=== PATIENT | male | born 1970 | race Caucasian/White ===

== ENCOUNTER 2024-08-06 20:32 | Inpatient (IN) | payer MEDICAID, OTHER ==
[~2024-08-06] VITALS: Ht 195.6 cm; Wt 115.0 kg
[~2024-08-06 20:32] MED LIST: ASPI81CH43 PO; ATOR20TA50 PO; MET25T PO; TICA90TA PO
--- NOTE | 2024-08-06 20:51 | ED.PDOC ---
HPI Comments 54-year-old male came to ER due to chest pains. Patient does have a history of hypertension, dyslipidemia, coronary artery disease, DE, status post cardiac stents. For the past 2 hours, has been having constant left-sided chest pains pressure, radiating towards his left arm, associated with shortness of breath. Blood pressure been upon arrival was 181/105 mm Hg Chief Complaint: Chest Pain Time Seen by MD: 20:50 Primary Care Provider: MELODY Reviewed Notes: Nurses Notes Allergies: Coded Allergies: NO KNOWN ALLERGIES (Unverified , 07/27/18) Home Meds Active Scripts Metoprolol Tartrate (Lopressor) 25 Mg Tb, 25 MG PO BID, #60 Prov:NIEVES CORDERO MD 07/29/18 Atorvastatin Calcium (ATORVASTATIN CALCIUM) 20 Mg Tab, 40 MG PO HS, #30 TAB Prov:NIEVES CORDERO MD 07/29/18 Ticagrelor Base (BRILINTA) 90 Mg Tab, 90 MG PO BID, #60 TAB Prov:NIEVES CORDERO MD 07/29/18 Aspirin (Asa) 81 Mg Ch, 81 MG PO DAILY, #30 Prov:NIEVES CORDERO MD 07/29/18 Information Source: Patient Mode of Arrival: Ambulatory Severity: Severe Timing: Hours (2) Duration: Since onset Prehospital treatment: Cns Location: Chest (L) Radiation: Arm (L) Quality: Pressure Onset: With Light Exertion Cardiac Risk Factors: Hyperlipidemia, HTN PE Risk Factors: None History of: Similar pain in past, DE Modifying Factors: Nothing Associated Signs and Symptoms: SOB Past Medical History PAST MEDICAL HISTORY: CAD, High Lipids, HTN, DE Surgical History: PTCA, Denies all surgeries Family History Family History: Reviewed,noncontributory to illness Social History Smoker: Non-Smoker Alcohol: Occasionally Drugs: Marijuana Lives In: Home Constitutional: denies: chills, diaphoresis, fatigue, fever, malaise, sweats, weakness, others EENTM: denies: blurred vision, double vision, ear bleeding, ear discharge, ear drainage, ear pain, ear ringing, eye pain, eye redness, hearing loss, mouth pain, mouth swelling, nasal discharge, nose bleeding, nose congestion, nose pain, photophobia, tearing, throat pain, throat swelling, voice changes, others Respiratory: reports: shortness of breath; denies: cough, hemoptysis, orthopnea, SOB at rest, SOB with excertion, stridor, wheezing, others Cardiovascular: reports: chest pain, left arm pain; denies: dizzy spells, diaphoresis, Dyspnea on exertion, edema, irregular heart beat, lightheadedness, palpitations, PND, syncope, others Gastrointestinal: denies: abdomen distended, abdominal pain, blood streaked bowels, constipated, diarrhea, dysphagia, difficulty swallowing, hematemesis, melena, nausea, poor appetite, poor fluid intake, rectal bleeding, rectal pain, vomiting, others Genitourinary: denies: burning, dysuria, flank pain, frequency, hematuria, incontinence, penile discharge, penile sore, pain, testicle pain, testicle swelling, urgency, others Neurological: denies: dizziness, fainting, headache, left sided numbness, left sided weakness, numbness, paresthesia, pre-existing deficit, right sided numbness, right sided weakness, seizure, speech problems, tingling, tremors, weakness, others Musculoskeletal: denies: back pain, gout, joint pain, joint swelling, muscle pain, muscle stiffness, neck pain, others Integumetry: denies: bruises, change in color, change in hair/nails, dryness, laceration, lesions, lumps, rash, wounds, others Allergic/Immunocompromised: denies: Difficulty Healing, Frequent Infections, Hives, Itching, others Hematologic/Lymphatic: denies: anemia, blood clots, easy bleeding, easy bruising, swollen glands, others Endocrine: denies: excessive hunger, excessive sweating, excessive thirst, excessive urination, flushing, intolerance to cold, intolerance to heat, unexplained weight gain, unexplained weight loss, others Psychiatric: denies: anxiety, bipolar disorder, depression, hopeless, panic disorder, schizophrenia, sleepless, suicidal, others Physical Exam General Appearance: No Apparent Distress, Normal HEENT: Normal ENT Inspection, Pharynx Normal, TMs Normal Neck: Full Range of Motion, Non-Tender, Normal, Normal Inspection Respiratory: Chest Non-Tender, Lungs Clear, No Accessory Muscle Use, No Respiratory Distress, Normal Breath Sounds Cardiovascular: No Edema, No JVD, No Murmur, No Gallop, Normal Peripheral Pulses, Regular Rate/Rhythm Breast Exam: Deferred Gastrointestinal: No Organomegaly, Non Tender, No Pulsatile Mass, Normal Bowel Sounds, Soft Genitalia: Deferred Pelvic: Deferred Rectal: Deferred Extremities: No calf tenderness, Normal capillary refill, Normal inspection, Normal range of motion, Non-tender, No pedal edema Musculoskeletal : Apperance: Normal Neurologic: Alert, power plant assistant II-XII nml as Tested, No Motor Deficits, Normal Affect, Normal Mood, No Sensory Deficits Cerebellar Function: Normal Reflexes: Normal Skin: Dry, Normal Color, Warm Lymphatic: No Adenopathy Was a procedure done? Was a procedure done?: No CP Differential Dx Differential Diagnosis: Angina, Anxiety / Panic Attack, Electrolyte Disorder Differential Diagnosis: Angina, Chest Wall Pain, Costochondritis, Esophageal reflux/spasm, Gastritis, Myocardial Infarction, Pneumonia X-Ray, Labs, Meds, VS Vital Signs Date Time Temp Pulse Resp B/P (MAP) Pulse Ox O2 Delivery O2 Flow Rate FiO2 08/06/24 21:00 65 18 180/103 (128) 99 08/06/24 21:00 71 10 100 Nasal Cannula* 4 36 08/06/24 20:55 68 16 176/89 (118) 99 08/06/24 20:36 97.6 68 16 181/105 (130) 98 Lab Test 08/06/24 21:26 08/06/24 21:09 08/06/24 20:47 Range/Units Troponin I High Sensitivity Pending Pending POC Glucose 158 H 70-106 mg/dl White Blood Count Pending Red Blood Count Pending Hemoglobin Pending Hematocrit Pending Mean Corpuscular Volume Pending Mean Corpuscular Hemoglobin Pending Mean Corpuscular Hemoglobin Concent Pending Red Cell Distribution Width Pending Platelet Count Pending Mean Platelet Volume Pending Neutrophils (%) (Auto) Pending Lymphocytes (%) (Auto) Pending Monocytes (%) (Auto) Pending Basophils (%) (Auto) Pending Neutrophils # (Auto) Pending Lymphocytes # (Auto) Pending Monocytes # (Auto) Pending Prothrombin Time Pending Prothrombin Time INR Pending Activated Partial Thromboplast Time Pending Sodium Level Pending Potassium Level Pending Chloride Level Pending Carbon Dioxide Level Pending Anion Gap Pending Blood Urea Nitrogen Pending Creatinine Pending Glomerular Filtration Rate Calc Pending BUN/Creatinine Ratio Pending Serum Glucose Pending Calcium Level Pending B-Type Natriuretic Peptide Pending Current Medications Medications (Trade) Dose Ordered Sig/Edison Route Start Time Stop Time Status Last Admin Heparin Sodium (Porcine) 3,000 units ONCE ONCE IV 08/06/24 20:45 08/06/24 20:47 DC 08/06/24 21:00 Time of 1ST Reevaluation: 20:47 Reevaluation 1ST: Unchanged Patient Education/Counseling: Diagnosis, Treatment Family Education/Counseling: No Family Present Departure 1 Departure Time of Disposition: 21:37 ([place] Authorization to admit at [facility] [id number] presented with a STEMI. Patient already took 5 baby asa. 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.) Impression: Primary Impression: Acute myocardial infarction Qualified Codes: I21.3 - ST elevation (STEMI) myocardial infarction of unspecified site Additional Impression: STEMI (ST elevation myocardial infarction) Qualified Codes: I21.3 - ST elevation (STEMI) myocardial infarction of unspecified site Disposition: ADMITTED INPATIENT Admit to: ICU Condition: Critical Critical Care Note Critical Care Time?: Yes (35 min-critical care time only) Critical care comment: Acute chest pain with STEMI Authorized and Performed by: lEzbieta Espinoza MD Total critical care time: Approximately 38 minutes Due to a high probability of clinically significant, life threatening deterioration, the patient required my highest level of preparedness to intervene emergently and I personally spent this critical care time directly and personally managing the patient. This critical care time included obtaining a history; examining the patient; pulse oximetry; ordering and review of studies; arranging urgent treatment with development of a management plan; evaluation of patient's response to treatment; frequent reassessment; and, discussions with other providers. This critical care time was performed to assess and manage the high probability of imminent, life-threatening deterioration that could result in multi-organ failure. It was exclusive of separately billable procedures and treating other patients and teaching time. Please see my other sections and the rest of the note for further information on patient assessment and treatment. Stability Stability form required: No Heart Score Heart Score: Heart Score Response (Comments) Value History Highly Suspicious [address]-Deviation 2 Age 45-64 1 Risk Factors >3 or Hx ASHD 2 Troponin Normal limit 0 Total 7 I personally scribed for ELZBIETA ESPINOZA MD (DVLARCO) on 08/06/24 at 20:51. Electronically submitted by Kenney Mann ([facility]). ELZBIETA ESPINOZA MD Aug 06, 2024 20:51
[2024-08-06 21:00] VITALS: PULSE 71; RESP 10; O2SAT 100
[2024-08-06] MEDS: HEPARIN SODIUM (PORCINE) 5000 UNITS/ML 1ML VIAL IV ONE (21:00)
[2024-08-06] MEDS: ONDANSETRON HCL 4 MG/2 ML VIAL ONE (21:11)
[2024-08-06] MEDS: MORPHINE SULFATE 4 MG/ML SYR/VIAL ONE (21:11)
[2024-08-06] MEDS: MORPHINE SULFATE 4 MG/ML SYR/VIAL IV ONE (21:13)
[2024-08-06] MEDS: ONDANSETRON HCL 4 MG/2 ML VIAL IV ONE (21:13)
[2024-08-06] MEDS: ANGIOMAX 250 MG VIAL IV ONE ×3 (21:15→23:59)
[2024-08-06] MEDS: VERAPAMIL 2.5MG/ML INJ 2ML VIAL IV ONE (21:15)
[2024-08-06] MEDS: IODIXANOL 320MG/ML 100ML BTL IV ONE ×2 (21:16→23:12)
[2024-08-06] MEDS: fentaNYL CITRATE 100 MCG/2 ML VL ONE (21:16)
[2024-08-06] MEDS: SODIUM CHL 0.9% 50 ML ONE ×3 (21:16→23:59)
[2024-08-06] MEDS: MIDAZOLAM HCL 2MG/2ML 2ml VIAL (1mg/ml) ONE (21:16)
[2024-08-06] MEDS: LIDOCAINE 2%HCL (LOCAL ANESTH.) INJ 20ML MDV ONE ×2 (21:20→23:12)
[2024-08-06 21:31] LABS: Potassium 4.2 mmol/L (3.5-5.1); Sodium 140 mmol/L (136-145)
[2024-08-06 21:32] LABS: Anion Gap 11 (5-15); Calcium 9.9 mg/dL (8.7-10.4); Carbon Dioxide 20 mmol/L (20-31)
--- NOTE | 2024-08-06 21:34 | DVHINCON2 ---
DATE OF CONSULTATION: 08/06/2024 CARDIOLOGY CONSULTATION REASON FOR CONSULTATION: Code STEMI. CONSULTING PHYSICIAN: Dr. Shawn Ortega. REFERRING PHYSICIAN: ER, Dr. Juan Daniel Perry. HISTORY OF PRESENT ILLNESS: The patient is a 54-year-old gentleman with a history of CAD, status post PCI to his RCA for an inferior STEMI in 2019; hypertension; hyperlipidemia; obesity. He is coming in with crushing chest pain for about 3 hours. An EKG was done showing ST elevation inferiorly with reciprocal changes. I was called and I recommended to activate a code STEMI Team and give the patient IV heparin. The patient is compliant with medications. He sees [place], and does not see a kitchen food assembler there. He had PCI done here in 2019. PAST MEDICAL HISTORY: As stated above. ALLERGIES: Reviewed. SOCIAL HISTORY: No current tobacco or illicits. REVIEW OF SYSTEMS: A 10-point review of systems is otherwise negative. PHYSICAL EXAMINATION: VITAL SIGNS: Per [employer]. HEAD: Normocephalic, atraumatic. ENT: Dry mucous membranes. NECK: Supple. CARDIOVASCULAR: S1, S2. Regular rate and rhythm. RESPIRATORY: Lungs with scattered rhonchi. GASTROINTESTINAL: Abdomen is soft, nontender. EXTREMITIES: Lower extremities, significant edema. PSYCHIATRIC: He is oriented, appropriate. The patient is in [id number] distress with crushing chest pain, nonradiating substernal. LABS: None. ASSESSMENT AND PLAN: * Inferior ST-elevation myocardial infarction. * Risk for stent thrombosis. * Hypertension. * Hyperlipidemia. PLAN: I reviewed the patient's previous cardiac cath in 2019. He had an 100% occluded RCA, status post PCI on a dominant RCA via femoral approach. He did have some left-sided disease at the time without revascularization. The patient is at high fall risk with possible risk for cardiovascular complications. Given the acuity of his presentation, he wishes to proceed with cardiac cath. Further recommendations will follow the patient's clinical course. A 90 minutes of critical care time was spent. Shawn Ortega MD CM/ANGÉLICA TID: [id number] RECEIPT: [id number]
[2024-08-06 21:36] LABS: Basophils # (auto) 0.1 10 ^3/uL (0-0.2); Basophils % (auto) 0.5 % (0.0-2.0); Eosinophils # (auto) 0.1 10 ^3/uL (0-0.8); Eosinophils % (auto) 0.5 % (0.0-7.0); Hematocrit 46.3 % (41.0-53.0); Hemoglobin 15.3 g/dL (13.5-17.5); Lymphocytes # (auto) 3.4 10 ^3/uL (0.4-5.4); Lymphocytes % (auto) 13.9 % (10.0-50.0); Mean Corpuscular Volume 81.7 fL (80.0-100.0); Monocytes # (auto) 1.4 10 ^3/uL (0-1.3); Monocytes % (auto) 5.6 % (0.0-12.0); Neutrophils # (auto) 19.7 10 ^3/uL (1.6-8.6); Neutrophils % (auto) 79.5 % (37.0-80.0); Platelet Count (auto) 281 10^3/uL (140-450); Red Blood Cells 5.66 10^6/uL (4.5-5.90); Red Cell Distribution Width 14.3 % (11.8-14.3); White Blood Cell 24.8 10^3/uL (4.4-10.8)
[2024-08-06 21:37] LABS: BUN/Creatinine Ratio 12.5 (10.0-20.0); Blood Urea Nitrogen 13 mg/dL (9-23)
[2024-08-06 21:41] LABS: Chloride 109 mmol/L (98-107); Glucose 161 mg/dL (74-106)
[2024-08-06] MEDS: ATROPINE SULF 1 MG/10ml SYR ONE (21:44)
[2024-08-06 21:50] LABS: INR 1.03 (0.9-1.15); Partial Thromboplastin Time 26.2 SEC (24.5-34.5); Prothrombin Time 10.9 sec (9.3-11.8)
[2024-08-06] MEDS: TICAGRELOR 90 MG TAB ONE (22:00)
[2024-08-06 22:15] VITALS: BP 148/78; PULSE 72; RESP 14; O2SAT 95
[2024-08-06 22:30] VITALS: BP 160/85; PULSE 78; RESP 18; O2SAT 94
[2024-08-06] MEDS ORDERED: ATORVASTATIN 20 MG TAB PO SCH (22:30)
[2024-08-06] MEDS ORDERED: MORPHINE SULFATE INJ 2 MG/ml SYRG IV PRN (22:30)
[2024-08-06] MEDS: FUROSEMIDE 20 MG/2 ML VIAL ONE (22:33)
[2024-08-06] MEDS: MORPHINE SULFATE INJ 2 MG/ml SYRG ONE (22:33)
[2024-08-06] MEDS: NITROGLYCERIN 0.4 MG SL TAB SL PRN (22:43)
--- NOTE | 2024-08-06 22:43 | DVHOP ---
DATE OF SURGERY: 08/06/2024 PREOPERATIVE DIAGNOSIS: Inferior STEMI. POSTOPERATIVE DIAGNOSIS: Inferior STEMI. PROCEDURES PERFORMED: * Selective coronary angiogram bilaterally. * Left heart catheterization, conscious sedation administration and supervision less than 15 minutes as well as 15-30 minutes as well as 30-45 minutes fluoroscopy use interpretation. * PTCA, single vessel. * PCI, single vessel. * Acute MA intervention. DESCRIPTION OF PROCEDURE: The patient signed informed consent, understanding risks and benefits, and alternatives of the procedure, he wished to proceed. He was brought to the test lab technician [place]. He was prepped in sterile fashion. I reviewed his cath films from 2019 where he had an RCA stent placed in the mid RCA with moderate left-sided disease. He was brought urgently to the test lab technician. He was prepped in sterile fashion. Sedation was used per cardiac cath protocol with 1 mg of Versed and 50 mcg of fentanyl. At this point, I gave 1 mL of 2% lidocaine to his right wrist with antegrade flow wall puncture . I cannulated his right radial artery and placed a 6-Mozambican Glidesheath Slender. Next, an intra-arterial spasmolytic was administered. Next, I took a 6-Mozambican JR4 guide and intubated the RCA. Angiogram was performed. This shows the proximal RCA is patent. Mid RCA has a patent stent. Mid and distal RCA is completely occluded with GUANACO 0 flow and significant amount of thrombus. At this point, a Whisper wire was used to cross into the distal RPL branch. I took a 2.5 x 15 mm balloon, performed balloon angioplasty with several inflations, about 4 separate inflations, each lasting about 15 seconds at 10 atmospheres. Following this, I regained GUANACO 2 flow. There was a discrete lesion right at the bifurcation of the RPDA and RPL. I At this point, I decided to bring a 2.75 x 18 mm Lopez drug-eluting stent, I crossed the lesion. I inflated this to high pressure of 16 atmospheres over 15 seconds with two separate inflations. Following this, angiogram showed 0% residual stenosis in that stented artery into the RPL with excellent flow. As expected, the PDA was jailed and therefore I rewired into the PDA at this point and I took a 2.0 x 12 mm balloon and I crossed the stent placed and I performed balloon angioplasty into the PDA with two separate inflations, each lasting 15 seconds at 10 atmospheres. Following this, I removed the balloon. Angiogram was performed showing excellent flow into the RPDA and RPL with moderate ostial disease. At this point, I decided to remove the JR4 guide. The patient had a brief episode of AIVR with a heart rate of 80, but stable blood pressure and then I switched to a 5-Mozambican Hoopa catheter to perform coronary angiogram to the left main system. This is a short left. FINDINGS: 1. Left main: Short left main bifurcates into LAD and circumflex, no severe stenosis. 2. Circumflex: Mild plaque, but otherwise patent in the proximal, mid and distal portion, giving off a very tortuous OM2, that is a dominant vessel. 3. LAD: LAD in the ostium and proximal portion is patent. The mid LAD has moderate 50% stenosis. This appears very similar to the angiogram in 2019 and the distal LAD has mild diffuse plaquing that is noncritical. At this point, I took the Hoopa catheter for an LVEDP which was severely elevated at 30 mmHg. The patient's blood pressure was 160/90. At this point, all guides and wires were removed and TR Band was used to obtain hemostasis. CONCLUSION: 1. Successful PTCA and PCI of an acutely occluded distal RCA and placement of drug-eluting stent along with PTCA into the ostial PDA for a jailed vessel. 2. Severe elevated LVEDP. PLAN: Admit to [facility] if amenable, IV Lasix 20 mg, the patient was loaded with Brilinta. Continue Angiomax drip until completion. Echo in the a.m., blood pressure control for the patient. Shawn Ortega MD CM/RADHA TID: [id number] RECEIPT: [id number] [facility]
[2024-08-06] MEDS: HEPARIN DRIP/D5W 100UNITS/ML 0 ML IV ONE (22:48)
[2024-08-06] MEDS: HYDROmorphone HCL 2 MG/ML VL/or syr IV STA (22:57)
[2024-08-06] MEDS: EPTIFIBATIDE INJ (2MG/ML) 10ML VIAL IV ONE ×2 (23:26→23:55)
[2024-08-07] VITALS (34 sets, daily range): BP systolic 116–155; BP diastolic 43–104; PULSE 63–184; RESP 10–19; TEMP 98.9; O2SAT 94–99
[2024-08-07] MEDS: IODIXANOL 320MG/ML 100ML BTL IV ONE (00:05)
[2024-08-07] MEDS: EPTIFIBATIDE DRIP(0.75MG/ML) 100 ML IV ONE (00:08)
[2024-08-07] MEDS ORDERED: hydrALAZINE HCL 20 MG/ML VL IV PRN (02:00)
[2024-08-07] MEDS: MORPHINE SULFATE INJ 2 MG/ml SYRG IV PRN (02:09)
[2024-08-07] MEDS: HEPARIN DRIP/D5W 100UNITS/ML 250 ML IV SCH (02:20)
--- NOTE | 2024-08-07 02:22 | DVH ---
EXAM: XY CHEST XRAY 1 VIEW CLINICAL HISTORY: iabp TECHNIQUE: Single AP view of the chest WID: COMPARISON: None FINDINGS: Lines and tubes: Intra-aortic balloon pump with the tip projecting over the aortic arch. Chest: Mild cardiomegaly with mild prominence of the central pulmonary vasculature. No pleural effusion, pneumothorax, or consolidation. Lung bases are not entirely included in the fiel d of view. The osseous structures are grossly intact. IMPRESSION: 1. Intra-aortic balloon pump with the radiopaque portion projecting over the aortic arch. 2. Mild cardiomegaly with pulmonary vascular congestion.
[2024-08-07 03:40] LABS: Eosinophils # (auto) 0 10 ^3/uL (0-0.8); Monocytes # (auto) 0.9 10 ^3/uL (0-1.3)
[2024-08-07 03:46] LABS: Basophils # (auto) 0.1 10 ^3/uL (0-0.2); Basophils % (auto) 0.3 % (0.0-2.0); Hematocrit 45.2 % (41.0-53.0); Hemoglobin 15.1 g/dL (13.5-17.5); Lymphocytes # (auto) 1.4 10 ^3/uL (0.4-5.4); Lymphocytes % (auto) 6.9 % (10.0-50.0); Mean Corpuscular Hemoglobin 27.2 pg (28.0-32.0); Mean Corpuscular Hgb Conc. 33.4 g/dL (32.0-36.0); Mean Corpuscular Volume 81.4 fL (80.0-100.0); Monocytes % (auto) 4.4 % (0.0-12.0); Neutrophils % (auto) 88.4 % (37.0-80.0); Nucleated Red Blood Cells % 0.1 %; Platelet Count (auto) 276 10^3/uL (140-450); Red Blood Cells 5.55 10^6/uL (4.5-5.90); Red Cell Distribution Width 14.5 % (11.8-14.3); White Blood Cell 20.4 10^3/uL (4.4-10.8)
[2024-08-07] MEDS: LORazepam 2MG/ML-1ML VIAL IV PRN (03:46)
[2024-08-07] MEDS ORDERED: cefTRIAXone 1GM/50ML D5W 50 ML IV ONE (04:15)
[2024-08-07 04:18] LABS: Alkaline Phosphatase 62 U/L (46-116); Anion Gap 11 (5-15); BUN/Creatinine Ratio 12.5 (10.0-20.0); Bilirubin, Total 0.6 mg/dL (0.2-1.0); Blood Urea Nitrogen 11 mg/dL (9-23); Calcium 10.1 mg/dL (8.7-10.4); Carbon Dioxide 20 mmol/L (20-31); Chloride 106 mmol/L (98-107); Potassium 4.3 mmol/L (3.5-5.1); Sodium 137 mmol/L (136-145)
[2024-08-07 04:20] LABS: Alanine Aminotransferase 85 U/L (7-40); Aspartate Aminotransferase 219 U/L (13-40); Glucose 154 mg/dL (74-106)
--- NOTE | 2024-08-07 04:51 | DVHHP2 ---
History of Present Illness Reason for Visit: Acute myocardial infarction History of Present Illness Patient is a 54-year-old male with past medical history of Coronary artery disease, hypertension, AK, hyperlipidemia who presented to [facility] ED with complaint of acute chest pain. Patient reports symptoms progressively get worse with constant left-sided chest pain, pressure in nature, radiating to his left arm, associated shortness of breaths, elevated blood pressure, getting worse that prompted this visit. Patient was seen and evaluated in the ED, laboratory data shows WBC 24.8, platelets 281, sodium 140, potassium 4.2, BUN 13, creatinine 1.04, GFR 86, glucose 161, BNP 37.93, troponin 35, blood pressure 181/105 trending down to 160/85, temperature 97.6 F, heart rate 73, O2 saturation 96% on oxygen. EKG revealing ST elevation inferiorly with reciprocal changes, code STEMI was activated, and was placed on IV heparin drip. Patient underwent successful coronary angiogram to the left main system. On my assessment, patient denied chest pain at this moment, no headache, no dizziness, no diaphoresis, currently on oxygen, no nausea, no vomiting, no fever, no chills. Patient will be transferred to [facility] for possible CABG. Past Medical History CAD, High Lipids, HTN, AK Past Surgical History PTCA Family History Reviewed, noncontributory to the management of this case. Past Social History Patient lives at home, denies smoking, drinks alcohol occasionally, uses marijuana. Review of Systems Constitutional: Yes: Weakness; No: Fever, Chills, Sweats, Malaise, Other Eyes: No: Pain, Vision change, Conjunctivae inflammation, Eyelid inflammation, Other, Redness ENT: No: Ear pain, Ear discharge, Nose pain, Nose discharge, Nose congestion, Mouth pain, Mouth swelling, Throat pain, Throat swelling, Other Respiratory: Shortness of breath; No: Cough, Dry, SOB with excertion, Wheezing, Hemoptysis, Pleuritic Pain, Sputum, Wheezing, Other Cardiovascular: Chest Pain, Other (Left arm pain); No: Palpitations, Orthopnea, Paroxysmal Noc. Dyspnea, Edema, Lt Headedness Gastrointestinal: No: Nausea, Vomiting, Abdominal Pain, Diarrhea, Constipation, Melena, Hematochezia, Other Genitourinary: No Dysuria, No Frequency, No Incontinence, No Hematuria, No Retention, No Other Musculoskeletal: No: other, neck pain, shoulder pain, arm pain, back pain, hand pain, leg pain, foot pain Skin: No: Rash, Lesions, Jaundice, Bruising, Other Neurological: No: Weakness, Numbness, Incoordination, Change in speech, Confusion, Seizures, Other Allergies: Coded Allergies: NO KNOWN ALLERGIES (Unverified , 07/27/18) Medications Current Medications Medications Dose Ordered Sig/Edison Route Start Time Stop Time Status Last Admin Dose Admin Heparin Sodium/ Dextrose 250 ml @ 10 mls/hr Q24H IV 08/06/24 22:45 08/07/24 02:20 10 MLS/HR Nitroglycerin 0.4 mg Q5MINP PRN SL 08/06/24 22:30 08/07/24 02:12 0.4 MG Morphine Sulfate 2 mg Q30M PRN IV 08/06/24 22:30 Aspirin 81 mg DAILY PO 08/07/24 10:00 Atorvastatin Calcium 40 mg DAILY PO 08/06/24 22:30 Carvedilol 3.125 mg DAILY PO 08/07/24 10:00 Hydralazine HCl 10 mg Q4HP PRN IV 08/07/24 02:00 Sacubitril/ Valsartan 1 tab BID PO 08/07/24 10:00 Ticagrelor 90 mg BID PO 08/07/24 10:00 Morphine Sulfate 2 mg Q2HPRN PRN IV 08/07/24 01:30 08/07/24 02:09 2 MG Lorazepam 1 mg Q4HPRN PRN IV 08/07/24 03:30 08/07/24 03:46 1 MG Exam Vital Signs Vital Signs Date Time Temp Pulse Resp B/P (MAP) Pulse Ox O2 Delivery O2 Flow Rate FiO2 08/07/24 04:00 71 08/07/24 02:27 14 95 Room Air* 0 21 08/07/24 02:12 131/62 08/06/24 20:36 97.6 General Appearance: Alert, Oriented X3, Cooperative, No acute distress HEENT: Atraumatic, PERRLA, EOMI, Mucous membr. moist/pink Respiratory: Clear to auscultation, Normal air movement Cardiovascular: Regular rate, Normal S1, Normal S2, No murmurs Abdominal: Normal bowel sounds, Soft, No tenderness, No hepatospenomegaly, No masses Extremities: No clubbing, No cyanosis, No edema, Normal pulses, No tenderness/swelling Skin: No rashes, No breakdown, No significant lesion Neuro: Normal speech, Normal tone, Sensation intact, Cranial nerves 3-12 NL, Reflexes 2+, Other (Weakness) Psych/Mental Status: Mental status NL, Mood NL Labs/Xrays Labs Test 08/07/24 03:21 08/06/24 21:26 08/06/24 21:09 08/06/24 20:47 Range/Units White Blood Count 20.4 H 4.4-10.8 10^3/uL Red Blood Count 5.55 4.5-5.90 10^6/uL Hemoglobin 15.1 13.5-17.5 g/dL Hematocrit 45.2 41.0-53.0 % Mean Corpuscular Volume 81.4 80.0-100.0 fL Mean Corpuscular Hemoglobin 27.2 L 28.0-32.0 pg Mean Corpuscular Hemoglobin Concent 33.4 32.0-36.0 g/dL Red Cell Distribution Width 14.5 H 11.8-14.3 % Platelet Count 276 140-450 10^3/uL Mean Platelet Volume 7.9 6.9-10.8 fL Neutrophils (%) (Auto) 88.4 H 37.0-80.0 % Lymphocytes (%) (Auto) 6.9 L 10.0-50.0 % Monocytes (%) (Auto) 4.4 0.0-12.0 % Eosinophils (%) (Auto) 0.0 0.0-7.0 % Basophils (%) (Auto) 0.3 0.0-2.0 % Neutrophils # (Auto) 18.0 H 1.6-8.6 10 ^3/uL Lymphocytes # (Auto) 1.4 0.4-5.4 10 ^3/uL Monocytes # (Auto) 0.9 0-1.3 10 ^3/uL Eosinophils # (Auto) 0 0-0.8 10 ^3/uL Basophils # (Auto) 0.1 0-0.2 10 ^3/uL Nucleated Red Blood Cells 0.1 % Troponin I High Sensitivity 35 </=54 ng/L POC Glucose 158 H 70-106 mg/dl Prothrombin Time 10.9 9.3-11.8 sec Prothrombin Time INR 1.03 0.9-1.15 Activated Partial Thromboplast Time 26.2 24.5-34.5 SEC B-Type Natriuretic Peptide 37.93 0-100 pg/mL PATIENT: TETE HITCHCOCK ACCT: [id number] UNIT: [id number] : 1970 LOC: ICU [place] ROOM / BED: [address] [place] [address] AGE / SEX: 54 / M ADM STATUS: ADM IN SERVICE 0123 ORDERING PHYSICIAN: JESICA DREW MD PROCEDURE(s): CXR1 - CHEST XRAY 1 VIEW REASON: iabp ORDER NUMBER(s): [id number], ACCESSION NUMBER(s): [id number] EXAM: XY CHEST XRAY 1 VIEW CLINICAL HISTORY: iabp TECHNIQUE: Single AP view of the chest WID: COMPARISON: None FINDINGS: Lines and tubes: Intra-aortic balloon pump with the tip projecting over the aortic arch. Chest: Mild cardiomegaly with mild prominence of the central pulmonary vasculature. No pleural effusion, pneumothorax, or consolidation. Lung bases are not entirely included in the field of view. The osseous structures are grossly intact. IMPRESSION: 1. Intra-aortic balloon pump with the radiopaque portion projecting over the aortic arch. 2. Mild cardiomegaly with pulmonary vascular congestion. Assessment/Plan Assessment/Plan Acute myocardial infarction STEMI (ST elevation myocardial infarction) Generalized weakness Leukocytosis, unspecified Hypertensive urgency ST elevation (STEMI) myocardial infarction of unspecified site Plan 1. Admit to intensive care unit 2. Breathing treatment 3. Pain control management 4. IV antibiotic management 5. Management of fluids and electrolytes 6. Consultation for cardiology 7. Diagnostic test chest x-ray 8. DVT prophylaxis-on heparin drip 9. Repeat labs CBC, CMP in a.m. 10. Home medication reviewed and reconciled 11. Continue with current medical management 12. Treatment plan discussed with patient and RN. Patient verbalized understanding. Plan discussed with: Patient, Other (RN) Problem List: (1) Acute myocardial infarction (2) STEMI (ST elevation myocardial infarction) (3) Leukocytosis, unspecified (4) Hypertensive urgency (5) Generalized weakness (6) ST elevation (STEMI) myocardial infarction of unspecified site Date of Service: Aug 07, 2024 Billing Provider: TIA SMITH DNP Common Visit Codes: [id number] INP/OBS CARE (HIGH) TIA SMITH DNP Aug 07, 2024 04:51
[2024-08-07] MEDS ORDERED: SACUBITRIL-VALSARTAN 24mg/26mg TAB PO SCH (10:00)
[2024-08-07] MEDS ORDERED: ASPirin 81 mg TAB PO SCH (10:00)
[2024-08-07] MEDS ORDERED: CARVEDILOL 3.125 MG TAB PO SCH (10:00)
[2024-08-07] MEDS ORDERED: TICAGRELOR 90 MG TAB PO SCH (10:00)
--- NOTE | 2024-08-07 11:13 | ECG ---
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
--- NOTE | 2024-08-08 03:18 | DVHOP ---
DATE OF SURGERY: 08/06/2024 PROCEDURE PERFORMED: Coronary angiogram, PTCA single vessel, acute FL intervention, intraaortic balloon pump placement, iliofemoral angiogram. PROCEDURE IN DETAIL: The patient developed worsening ST elevation and worsening chest pain. At this point, I decided to bring the patient back to the medical laboratory manager. He was already in the recovery area. He was brought urgently back to the medical laboratory manager and he was prepped in sterile fashion. I gave 8 mL of 2% lidocaine to his right groin with antegrade femoral puncture. I cannulated his right common femoral artery and placed a 6-Swazi sheath. At this point, I took a 6-Swazi JR4 guide and intubated the RCA. Angiogram was performed. This shows the distal RCA was completely occluded with a significant thrombus within it, likely within the previously placed stent. Angiomax bolus and drip had been initiated. I brought a 0.014 x 190 BMW wire, but it would not cross and, therefore, I had to switch out to a Whisper wire, which crossed into the RPL branch. At this point, I had trouble bringing my balloon down and so I brought a second wire into the RPDA vessel as well. Then, I was able to bring a 2.0 balloon as well as 2.5 balloon for multiple balloon inflations, a 2.0 x 15 and 2.5 x 15 balloon, semi-compliant and I performed balloon angioplasty with several inflations throughout the previously placed stent. We did get improved flow, almost GUANACO 2, but there was still significant thrombus burden within the bifurcation area. At this point, multiple attempts were done to continue with balloon angioplasty, but I was unable to get the balloon all the way to the mid RPL region and at this point, the patient was hemodynamically stable, has had improved chest pain, significant ST elevations, however. I decided to complete the procedure and the patient had gotten intracoronary Integrilin with 2 separate boluses and then at this point, I placed a 50 mL intra-aortic balloon pump in place and sutured with about 2 cm below the subclavian takeoff. The patient was hemodynamically stable with augmented pressures of 160. At this point, I did discuss the case with Dr. Beltre, cardiac surgeon for [facility] as well as [facility] to see if he would consider taking the patient. He did ask for me to discuss with administration and see if this would be a viable option. I spoke with Dr. Vickers, our bindery chief during the procedure as well to recommend transfer to higher level of care for possible CABG as there is concern for re-thrombosis of the RCA. He did say he would discuss with our ER team as the patient does go to [place]. The patient is currently in the recovery medical laboratory manager holding, on an Integrilin drip as well. Shawn Ortega MD CM/HEM TID: [id number] RECEIPT: [id number]
--- NOTE | 2024-08-08 07:44 | ECG ---
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
[2024-08-08] MEDS ORDERED: cefTRIAXone 1GM/50ML D5W 50 ML IV SCH (09:00)
--- NOTE | 2024-08-08 09:42 | ECG ---
[facility] Test Date: 2024-08-06 Test Time: 20:39:23 Pat Name: TETE HITCHCOCK Department: ER Room: [address] [place] [address] Gender: M Officer Captain: BENJAMÍN : 1970 Requested By: ELZBIETA ESPINOZA Order Number: [id number] Reading MD: Measurements Intervals [place] Rate: 67 P: 67 [place]: 197 QRS: 70 QRSD: 117 T: 94 QT: 400 QTc: 423 Interpretive Statements Sinus rhythm Ventricular premature complex Left atrial enlargement Incomplete left bundle branch block Inferoposterior infarct, acute (LCx) ST depression V1-V3, suggest recording posterior leads Baseline wander in lead(s) V2,V3 Please click the below link to view image of tracing.
--- NOTE | 2024-08-09 13:43 | ECG ---
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
== END 2024-08-07 05:10 | disposition short-term general hospital (02) | DRG 272 ==
LOC: ER 20:32 → OVERFLOW 22:16 → ICU WEST 08-07 01:10 → OVERFLOW 08-07 02:57 → ICU WEST 08-07 03:01
PROVIDERS: ADMIT Internal Medicine; ATTEND Internal Medicine
PROC: 5A02210 Assistance with Cardiac Output using Balloon Pump, Continuous (ICD-10-PCS; principal; 2024-08-06)
PROC: 027034Z Dilation of Coronary Artery, One Artery with Drug-eluting Intraluminal Device, Percutaneous Approach (ICD-10-PCS; 2024-08-06)
PROC: B211YZZ Fluoroscopy of Multiple Coronary Arteries using Other Contrast (ICD-10-PCS; 2024-08-06)
PROC: 4A023N7 Measurement of Cardiac Sampling and Pressure, Left Heart, Percutaneous Approach (ICD-10-PCS; 2024-08-06)
PROC: B41FYZZ Fluoroscopy of Right Lower Extremity Arteries using Other Contrast (ICD-10-PCS; 2024-08-06)
PROC: 02703ZZ Dilation of Coronary Artery, One Artery, Percutaneous Approach (ICD-10-PCS; 2024-08-06)
DX: I21.19 ST elevation (STEMI) myocardial infarction involving other coronary artery of inferior wall (principal); I10 Essential (primary) hypertension; D72.829 Elevated white blood cell count, unspecified; E66.9 Obesity, unspecified; I16.0 Hypertensive urgency; E78.5 Hyperlipidemia, unspecified; I25.10 Atherosclerotic heart disease of native coronary artery without angina pectoris; Z79.82 Long term (current) use of aspirin; Z79.899 Other long term (current) drug therapy; I25.2 Old myocardial infarction
CPT/HCPCS: 33970; 36415; 71045; 75710; 80048; 80053; 82962; 83880; 84484; 85025; 85610; 85730; 87081; 92941; 93005; 93458; 96374; 96375; 99152; 99291; C1874; G0378; J2250; J2405; Q9967

== ENCOUNTER 2024-09-21 05:59 | Inpatient (IN) | payer OTHER ==
[2024-09-21] VITALS (15 sets, daily range): BP systolic 139–167; BP diastolic 72–90; PULSE 70–99; RESP 12–19; TEMP 98.2–98.6; O2SAT 96–99
[~2024-09-21] VITALS: Ht 195.6 cm; Wt 110.6 kg
--- NOTE | 2024-09-21 06:15 | ECG ---
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
--- NOTE | 2024-09-21 06:39 | ED.PDOC ---
HPI Comments 54M presents to the ER w/ prior Hx of High Lipids, HTN, and an IN-08/08/24 and Single Vessel Bypass CABG-08/08/24 at [facility] which may be associated to the c/c of CP. Pt reports on having left sided pressure like, CP which radiates down the left arm and that the pt states that it feel like a " arm". Pt states on the CP starting last night between [id number]. Pt notes on taking 3 baby aspirin this morning at 0430. PMHx of CAD. SHx of PTCA. Social Hx of Marijuana use be fore IN on 08/08/24, but denies tobacco and alcohol use. Denies chills, fever, N/V/D, SOB or no other associated symptom's, modifiers, recent injuries or sick contact at this time. Chief Complaint: Chest Pain Time Seen by MD: 06:15 Primary Care Provider: MELODY Alcaraz Notes: Nurses Notes, Medications, Allergies Allergies: Coded Allergies: NO KNOWN ALLERGIES (Unverified , 07/27/18) Home Meds Active Scripts Metoprolol Tartrate (Lopressor) 25 Mg Tb, 25 MG PO BID, #60 Prov:NIEVES CORDERO MD 07/29/18 Atorvastatin Calcium (ATORVASTATIN CALCIUM) 20 Mg Tab, 40 MG PO HS, #30 TAB Prov:NIEVES CORDERO MD 07/29/18 Ticagrelor Base (BRILINTA) 90 Mg Tab, 90 MG PO BID, #60 TAB Prov:NIEVES CORDERO MD 07/29/18 Aspirin (Asa) 81 Mg Ch, 81 MG PO DAILY, #30 Prov:NIEVES CORDERO MD 07/29/18 Information Source: Patient Mode of Arrival: Ambulatory Severity: Moderate Timing: Hours Duration: Since onset, Hours Location: Chest (L) Radiation: Shoulder (L), Arm (L) Quality: Pressure Onset: At Rest Cardiac Risk Factors: Hyperlipidemia, HTN PE Risk Factors: Recent Surgery History of: Similar pain in past, IN, Aspirin (3 baby aspirin) Associated Signs and Symptoms: None Past Medical History PAST MEDICAL HISTORY: CAD, High Lipids, HTN, IN (08/08/24) Surgical History: CABG (08/08/24-Single Vessel Bypass at [facility]), PTCA Family History Family History: Reviewed,noncontributory to illness, Unknown Social History Smoker: Non-Smoker Alcohol: Denies ETOH Use Drugs: Marijuana (Quit after IN on 08/08/24) Lives In: Home Constitutional: denies: chills, diaphoresis, fatigue, fever, malaise, sweats, weakness, others EENTM: denies: blurred vision, double vision, ear bleeding, ear discharge, ear drainage, ear pain, ear ringing, eye pain, eye redness, hearing loss, mouth pain, mouth swelling, nasal discharge, nose bleeding, nose congestion, nose pain, photophobia, tearing, throat pain, throat swelling, voice changes, others Respiratory: denies: cough, hemoptysis, orthopnea, SOB at rest, shortness of breath, SOB with excertion, stridor, wheezing, others Cardiovascular: reports: chest pain, left arm pain; denies: dizzy spells, diaphoresis, Dyspnea on exertion, edema, irregular heart beat, lightheadedness, palpitations, PND, syncope, others Gastrointestinal: denies: abdomen distended, abdominal pain, blood streaked bowels, constipated, diarrhea, dysphagia, difficulty swallowing, hematemesis, melena, nausea, poor appetite, poor fluid intake, rectal bleeding, rectal pain, vomiting, others Genitourinary: denies: burning, dysuria, flank pain, frequency, hematuria, incontinence, penile discharge, penile sore, pain, testicle pain, testicle swelling, urgency, others Neurological: denies: dizziness, fainting, headache, left sided numbness, left sided weakness, numbness, paresthesia, pre-existing deficit, right sided numbness, right sided weakness, seizure, speech problems, tingling, tremors, weakness, others Musculoskeletal: denies: back pain, gout, joint pain, joint swelling, muscle pain, muscle stiffness, neck pain, others Integumetry: denies: bruises, change in color, change in hair/nails, dryness, laceration, lesions, lumps, rash, wounds, others Allergic/Immunocompromised: denies: Difficulty Healing, Frequent Infections, Hives, Itching, others Hematologic/Lymphatic: denies: anemia, blood clots, easy bleeding, easy bruising, swollen glands, others Endocrine: denies: excessive hunger, excessive sweating, excessive thirst, excessive urination, flushing, intolerance to cold, intolerance to heat, unexplained weight gain, unexplained weight loss, others Psychiatric: denies: anxiety, bipolar disorder, depression, hopeless, panic disorder, schizophrenia, sleepless, suicidal, others All Other Systems: Reviewed and Negative Physical Exam General Appearance: Moderate Distress, Normal HEENT: Normal ENT Inspection, Pharynx Normal, TMs Normal Neck: Full Range of Motion, Non-Tender, Normal, Normal Inspection Respiratory: Chest Non-Tender, Lungs Clear, No Accessory Muscle Use, No Respiratory Distress, Normal Breath Sounds Cardiovascular: No Edema, No JVD, No Murmur, No Gallop, Normal Peripheral Pulses, Tachycardia Breast Exam: Deferred Gastrointestinal: No Organomegaly, Non Tender, No Pulsatile Mass, Normal Bowel Sounds, Soft Genitalia: Deferred Pelvic: Deferred Rectal: Deferred Extremities: No calf tenderness, Normal capillary refill, Normal inspection, Normal range of motion, Non-tender, No pedal edema Musculoskeletal : Apperance: Normal Neurologic: Alert, online health and fitness coach II-XII nml as Tested, No Motor Deficits, Normal Affect, Normal Mood, No Sensory Deficits Cerebellar Function: NOT DONE Reflexes: NOT DONE Skin: Dry, Normal Color, Warm Peripheral Pulses: 3+ Radial (R), 3+ Radial (L) Lymphatic: No Adenopathy Was a procedure done? Was a procedure done?: No CP Differential Dx Differential Diagnosis: A-fib, A-Flutter, Angina, Anxiety / Panic Attack, Atrial Dysrhythmia, Electrolyte Disorder X-Ray, Labs, Meds, VS Vital Signs Date Time Temp Pulse Resp B/P (MAP) Pulse Ox O2 Delivery O2 Flow Rate FiO2 09/21/24 06:45 73 18 157/93 09/21/24 06:28 81 09/21/24 06:26 87 12 96 Nasal Cannula* 2 28 09/21/24 06:26 97.5 87 12 157/93 (114) 96 97.5 09/21/24 06:08 74 09/21/24 05:59 98.2 72 20 179/92 (121) 99 Lab Test 09/21/24 06:38 Range/Units White Blood Count Pending Red Blood Count Pending Hemoglobin Pending Hematocrit Pending Mean Corpuscular Volume Pending Mean Corpuscular Hemoglobin Pending Mean Corpuscular Hemoglobin Concent Pending Red Cell Distribution Width Pending Platelet Count Pending Mean Platelet Volume Pending Neutrophils (%) (Auto) Pending Lymphocytes (%) (Auto) Pending Monocytes (%) (Auto) Pending Basophils (%) (Auto) Pending Neutrophils # (Auto) Pending Lymphocytes # (Auto) Pending Monocytes # (Auto) Pending Prothrombin Time Pending Prothrombin Time INR Pending Activated Partial Thromboplast Time Pending Sodium Level Pending Potassium Level Pending Chloride Level Pending Carbon Dioxide Level Pending Anion Gap Pending Blood Urea Nitrogen Pending Creatinine Pending Glomerular Filtration Rate Calc Pending BUN/Creatinine Ratio Pending Serum Glucose Pending Calcium Level Pending Troponin I High Sensitivity Pending Current Medications Medications (Trade) Dose Ordered Sig/Edison Route Start Time Stop Time Status Last Admin Heparin Sodium (Porcine) 5,000 units ONCE ONCE IV 09/21/24 06:45 09/21/24 06:46 DC 09/21/24 06:43 Morphine Sulfate 4 mg ONCE ONCE IV 09/21/24 06:45 09/21/24 06:46 DC 09/21/24 06:45 Ondansetron HCl (Zofran) 4 mg ONCE ONCE IV 09/21/24 06:45 09/21/24 06:46 DC 09/21/24 06:43 Patient alert. Complaining of chest pain. History of recent cardiac bypass surgery. Blood pressure elevated. Was given metoprolol. Was given morphine. Was given Zofran. Started heparin. Was given nitro. Spoke with Cardiology. EKG reviewed does show ST changes. Cardiac catheterization. Explained to the patient. Chest x-ray reviewed does not show any acute changes. Time of 1ST Reevaluation: 06:45 Reevaluation 1ST: Unchanged Patient Education/Counseling: Diagnosis, Treatment, Prognosis Family Education/Counseling: No Family Present Departure 1 Departure Time of Disposition: 06:57 Impression: Primary Impression: ST elevation (STEMI) myocardial infarction of unspecified site Qualified Codes: I21.3 - ST elevation (STEMI) myocardial infarction of unspecified site Additional Impression: Hypertensive urgency Disposition: ADMITTED INPATIENT Admit to: Med Surg Condition: Guarded Critical Care Note Critical Care Time?: Yes (45 min-critical care time only) Critical care comment: Continue cardiac monitoring Stability Stability form required: No Heart Score Heart Score: Heart Score Response (Comments) Value History Highly Suspicious [address]-Deviation 2 Age 45-64 1 Risk Factors >3 or Hx ASHD 2 Troponin N/A 0 Total 7 I personally scribed for CHUCHO SANCHEZ MD ([email or web address]) on 09/21/24 at 06:38. Electronically submitted by Carlos Hdez ([email or web address]). CHUCHO SANCHEZ MD Sep 21, 2024 06:38
[2024-09-21] MEDS: HEPARIN SODIUM (PORCINE) 5000 UNITS/ML 1ML VIAL IV ONE (06:43)
[2024-09-21] MEDS: ONDANSETRON HCL 4 MG/2 ML VIAL IV ONE (06:43)
[2024-09-21] MEDS: METOPROLOL TARTRATE 25 MG TAB PO ONE (06:45)
[2024-09-21] MEDS: MORPHINE SULFATE 4 MG/ML SYR/VIAL IV ONE (06:45)
[2024-09-21] MEDS: NITROGLYCERIN 0.4 MG SL TAB SL ONE (06:48)
--- NOTE | 2024-09-21 06:53 | DVH ---
EXAM: XR Chest, 1 View CLINICAL INDICATION: sob TECHNIQUE: Frontal view of the chest. COMPARISON: XY CHEST XRAY 1 VIEW on DOS: 08/07/24 FINDINGS: LUNGS AND PLEURAL SPACES: See below. HEART: Cardiomegaly with mild congestion. MEDIASTINUM: Unremarkable. Normal mediastinal contour. BONES/JOINTS: Unremarkable. No acute fracture. OTHER FINDINGS: . IMPRESSION: Cardiomegaly with mild congestion.
[2024-09-21] MEDS: ANGIOMAX 250 MG VIAL IV ONE ×3 (06:56→09:25)
[2024-09-21] MEDS: HEPARIN SODIUM (PORCINE) 5000 UNITS/ML 1ML VIAL ONE ×2 (06:56→07:37)
[2024-09-21] MEDS: LIDOCAINE 2%HCL (LOCAL ANESTH.) INJ 20ML MDV ONE (06:57)
[2024-09-21] MEDS: MIDAZOLAM HCL 2MG/2ML 2ml VIAL (1mg/ml) ONE (06:57)
[2024-09-21] MEDS: SODIUM CHL 0.9% 50 ML ONE ×3 (06:57→09:25)
[2024-09-21] MEDS: fentaNYL CITRATE 100 MCG/2 ML VL ONE (06:57)
[2024-09-21] MEDS: VERAPAMIL 2.5MG/ML INJ 2ML VIAL IV ONE (06:57)
[2024-09-21] MEDS: IODIXANOL 320MG/ML 100ML BTL IV ONE ×2 (06:58→09:25)
[2024-09-21 07:28] LABS: Basophils # (auto) 0.1 10 ^3/uL (0-0.2); Eosinophils # (auto) 0.2 10 ^3/uL (0-0.8); Hemoglobin 13.3 g/dL (13.5-17.5); Monocytes % (auto) 7.8 % (0.0-12.0); Red Blood Cells 5.15 10^6/uL (4.5-5.90)
[2024-09-21 07:30] LABS: Basophils % (auto) 0.6 % (0.0-2.0); Eosinophils % (auto) 1.5 % (0.0-7.0); Hematocrit 39.6 % (41.0-53.0); Lymphocytes # (auto) 1.7 10 ^3/uL (0.4-5.4); Lymphocytes % (auto) 12.7 % (10.0-50.0); Mean Corpuscular Hemoglobin 25.9 pg (28.0-32.0); Mean Corpuscular Hgb Conc. 33.7 g/dL (32.0-36.0); Neutrophils # (auto) 10.2 10 ^3/uL (1.6-8.6); Neutrophils % (auto) 77.4 % (37.0-80.0); Platelet Count (auto) 273 10^3/uL (140-450); Red Cell Distribution Width 14.6 % (11.8-14.3); White Blood Cell 13.2 10^3/uL (4.4-10.8)
[2024-09-21 07:31] LABS: Chloride 102 mmol/L (98-107); Potassium 4.1 mmol/L (3.5-5.1); Sodium 137 mmol/L (136-145)
[2024-09-21 07:32] LABS: Anion Gap 11 (5-15); Carbon Dioxide 24 mmol/L (20-31)
[2024-09-21 07:33] LABS: Calcium 10.2 mg/dL (8.7-10.4)
[2024-09-21 07:34] LABS: INR 1.03 (0.9-1.15); Partial Thromboplastin Time 27.9 SEC (24.5-34.5); Prothrombin Time 10.9 sec (9.3-11.8)
[2024-09-21 07:37] LABS: BUN/Creatinine Ratio 16.3 (10.0-20.0); Blood Urea Nitrogen 13 mg/dL (9-23)
[2024-09-21 07:38] LABS: Glucose 126 mg/dL (74-106)
[2024-09-21] MEDS: TICAGRELOR 90 MG TAB ONE (09:32)
--- NOTE | 2024-09-21 09:41 | DVHINCON2 ---
Date Seen: Sep 21, [address] Holden Reason for Consultation Acute ST-elevation myocardial infarction History of Present Illness 54-year-old gentleman with a noted history of underlying coronary artery disease returns to the acute chest pain. He started to develop chest pressure late last night with increasing severity and intensity. He is status post coronary bypass grafting a [facility] back in July. His symptoms have been increasing in severity and intensity. We came to the emergency he was found to have ST elevations in the inferior leads. Code STEMI was called Past Medical History He has past medical history significant for hypertension hyperlipidemia. Failure angioplasty in his last admission at [facility]. He was transferred to [place] on a balloon pump with associated abrupt closure of the RCA PDA. At [facility] he underwent single-vessel coronary bypass graft into the PDA. Past Surgical History Coronary bypass grafting Family History: Alcoholism Cardiovascular disease G8 MOTHER FH: myocardial infarction G8 FATHER FH: stroke G8 MOTHER Allergies: Coded Allergies: NO KNOWN ALLERGIES (Unverified , 07/27/18) Home Meds Active Scripts Metoprolol Tartrate (Lopressor) 25 Mg Tb, 25 MG PO BID, #60 Prov:NIEVES CORDERO MD 07/29/18 Atorvastatin Calcium (ATORVASTATIN CALCIUM) 20 Mg Tab, 40 MG PO HS, #30 TAB Prov:NIEVES CORDERO MD 07/29/18 Ticagrelor Base (BRILINTA) 90 Mg Tab, 90 MG PO BID, #60 TAB Prov:NIEVES CORDERO MD 07/29/18 Aspirin (Asa) 81 Mg Ch, 81 MG PO DAILY, #30 Prov:NIEVES CORDERO MD 07/29/18 Review of Systems From a constitutional standpoint no fevers chills or weight loss. Cardiac respiratory as noted above with a history of recent chest pain previous myocardial infarction. No respiratory problems. GI and negative. Musculoskeletal endocrine hematologic negative. Endocrine dermatologic negative. Vital Signs Vital Signs Date Time Temp Pulse Resp B/P (MAP) Pulse Ox O2 Delivery O2 Flow Rate FiO2 09/21/24 06:45 73 18 157/93 09/21/24 06:26 96 Nasal Cannula* 2 28 09/21/24 06:26 97.5 97.5 Physical Exam Awake alert and oriented no acute distress. Moderate chest pain. No diaphoresis. Vital signs are noted. HEENT examination was unremarkable lungs are clear heart exam is regular extremities well perfused. Neurologically intact. Integumentary is otherwise within normal limits. Labs/Diagnostic Data Labs Test 09/21/24 06:38 Range/Units White Blood Count 13.2 H 4.4-10.8 10^3/uL Red Blood Count 5.15 4.5-5.90 10^6/uL Hemoglobin 13.3 L 13.5-17.5 g/dL Hematocrit 39.6 L 41.0-53.0 % Mean Corpuscular Volume 77.0 L 80.0-100.0 fL Mean Corpuscular Hemoglobin 25.9 L 28.0-32.0 pg Mean Corpuscular Hemoglobin Concent 33.7 32.0-36.0 g/dL Red Cell Distribution Width 14.6 H 11.8-14.3 % Platelet Count 273 140-450 10^3/uL Mean Platelet Volume 8.0 6.9-10.8 fL Neutrophils (%) (Auto) 77.4 37.0-80.0 % Lymphocytes (%) (Auto) 12.7 10.0-50.0 % Monocytes (%) (Auto) 7.8 0.0-12.0 % Eosinophils (%) (Auto) 1.5 0.0-7.0 % Basophils (%) (Auto) 0.6 0.0-2.0 % Neutrophils # (Auto) 10.2 H 1.6-8.6 10 ^3/uL Lymphocytes # (Auto) 1.7 0.4-5.4 10 ^3/uL Monocytes # (Auto) 1.0 0-1.3 10 ^3/uL Eosinophils # (Auto) 0.2 0-0.8 10 ^3/uL Basophils # (Auto) 0.1 0-0.2 10 ^3/uL Nucleated Red Blood Cells 0.0 % Prothrombin Time 10.9 9.3-11.8 sec Prothrombin Time INR 1.03 0.9-1.15 Activated Partial Thromboplast Time 27.9 24.5-34.5 SEC Sodium Level 137 136-145 mmol/L Potassium Level 4.1 3.5-5.1 mmol/L Chloride Level 102 98-107 mmol/L Carbon Dioxide Level 24 20-31 mmol/L Anion Gap 11 5-15 Blood Urea Nitrogen 13 9-23 mg/dL Creatinine 0.80 0.700-1.30 mg/dL Glomerular Filtration Rate Calc 106 >90 mL/min BUN/Creatinine Ratio 16.3 10.0-20.0 Serum Glucose 126 H 74-106 mg/dL Calcium Level 10.2 8.7-10.4 mg/dL Troponin I High Sensitivity 88 *H </=54 ng/L EKG shows ST elevations in the inferior leads. Assessment Acute ST-elevation myocardial infarction to the inferior wall likely restenosis of RCA or graft occlusion. Noted history of hyperlipidemia and hypertension. Plan/Recommendation Patient will undergo urgent cardiac catheterization therapeutic intervention. Risks and benefits explained. 60 minutes was undertaken and evaluating patient coordinating care. Plan discussed with: Spouse NYHA Physical activity limitations: Class2(Slight)fatigue,sob Date of Service: Sep 21, 2024 Billing Provider: GOPAL BUSH Sr., MD Cardiology Common Codes: 08499-UHCACPF INP/OBS CARE (High) Cardiology Consultation Codes: 12194-FEMDIMZEU CONSULT <60MIN GOPAL BUSH Sr., MD Sep 21, 2024 09:41
--- NOTE | 2024-09-21 09:53 | ECG ---
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
--- NOTE | 2024-09-21 10:00 | DVHOP2 ---
Operative Report - 2 Report Details Date: 09/21/24 Preop Diagnosis: Acute ST-elevation myocardial infarction Postop Diagnosis: Successful aperture of RCA. Surgeon: Gopal Olvera MD Anesthesiologist: Conscious sedation Anesthesia: Mac, Local (Hi personally ordered the administration of Versed and fentanyl. I monitored the patient throughout the entire procedure.) Consent: The patient was informed of the risks and benefits of the procedure. These include but are not limited to complications of anesthesia, postoperative infection, incomplete relief of symptoms, recurrence of symptoms, damage to blood vessels, nerves and tendons, deep venous thrombosis, pulmonary embolism and possible need for repeat surgery in the future. Complications: No complications. Estimated Blood Loss: 10 cc Findings: Occluded RCA. Thrombosed vessel Indications for Surgery: Acute ST-elevation CT Name of Procedure Performed Left heart catheterization bilateral cine coronary angiography. Left ventricu lography. Thrombectomy of the RCA. Visualization of saphenous venous graft. Intravascular ultrasound of RCA. PTCA and stenting of RCA. Procedure Details Procedure Details: Prior local anesthesia with 2% lidocaine to the right groin and full informed consent obtained the patient was prepped and draped in the usual fashion followed by placement of a seven Romansh sheath into the right femoral artery. We initially tried a seven Romansh JR4 however given lack of backup we switched to an AL1 guide. Ventriculography was performed as well as visualization of the RCA. We cannulated the left main at the end of the procedure. A Perclose device was used to seal the artery. Thrombectomy in his LEs for ultrasound evaluation as well as evaluation of the saphenous venous graft to the RCA was performed successfully. Hemodynamics: Aortic blood pressure was 150/90 end-diastolic pressure was 18. There was no gradient across the aortic valve on pullback. Coronary anatomy the RCA is 100% occluded proximally. There is what appears to be notable in stent thrombosis. The saphenous venous graft to the PDA is patent without retrograde filling of the posterolateral branch. The left main is large and normal. Left anterior descending has a proximal 50-60% lesion proximally. The mid and distal segments are normal. The diagonals are normal. Circumflex has two obtuse marginal branches it is nondominant it was free of significant disease. Ventriculography in the LAY projection shows EF of about 55-60% inferior hypokinesis. Angioplasty was performed for which a AL1 guide was then placed. We used a fine cross catheter to cross the area of stenosis along with a pro V three and a pro B six wire. We then used a choice PT extra-support wire to cross the area of stenosis within the distal RCA. The entire RCA was thrombosed from the origin to the distal posterolateral branch that has been previously stented with notable in stent thrombosis. There was some delay in opening the artery given we had to go through a significant amount of thrombus and debris. After placing a wire across the stenosis and a distal posterolateral branches plus the fine cross confirmed position by injecting contrast on placed a sport wire followed by a one 0 Sapphire balloon to open the artery. We then used a two five balloon and finally a 3-0 by 12 mm AngioSculpt to score the artery. We were able to obtain access in flow into the posterolateral branch however there was significant in stent thrombosis and restenosis with fibrinous chemo ablation in the proximal mid distal segments. We then took in artery device and performed several runs. This cleared up what appeared to be a significant amount of thrombus however there was still a lot of fibrous plaquing present. We then placed a 3-0 by 18 mm stent distally. We placed a 2nd of three five by homicidal 3-0 by 18 adjacent to that proximal to the previously placed stent with what is called a stent sandwich in the distal RCA at the level of the occluded PDA. There was some residual dissection in the mid to distal segment and we placed a three five by 18 mm stent. Given that there was significant disease proximal stent restenosis and thrombosis placed a 4-0 by 38 stent into the proximal and mid section. There was excellent antegrade flow at the end of the angioplasty. There was no in the RCA. Slight thrombus was noted in a jailed acute marginal branch. The saphenous venous graft to the RCA is patent. Impression successful aperture of RCA. Intravascular ultrasound evaluation thrombectomy and stenting of the RCA performed. Mild disease of the LAD. Elevated left ventricular end-diastolic pressure. Normal ejection fraction spite of inferior wall hypokinesis. Recommendations continue medical therapy and risk factor modification. Dual antiplatelet therapy and lipid-lowering therapy to continue. Condition Good Disposition Still a Patient Date of Service: Sep 21, 2024 Billing Provider: GOPAL OLVERA Sr., MD Cardiology Common Codes: 45753-GBTOTCI INP/OBS CARE (High), 44076-GIRNNDNN CARE 30-74 MIN Cardiology Procedure Codes: 41586-LNIMJV VESSEL W/I VASC FAM, 72192 -PTCA W/STENT PLACEMENT, 27954-EETB ADD CORONARY BRANCH, 70889-PMHT FOR STEMI W/STENT, 20342-MKPD ADD COR ART/BRNCH/GRFT, 66680-Z/L HEART CATH W/BYPASS GOPAL CALDWELL Sr., MD Sep 21, 2024 10:00
[2024-09-21] MEDS ORDERED: NITROGLYCERIN 0.4 MG SL TAB SL PRN (12:00)
[2024-09-21] MEDS ORDERED: DOCUSATE SOD 100 MG CAP PO PRN (12:00)
[2024-09-21] MEDS ORDERED: ACETAMINOPHEN 325 MG TAB PO PRN (12:00)
[2024-09-21] MEDS ORDERED: HYDROcodone-ACET 5/325MG TAB PO PRN (12:00)
[2024-09-21] MEDS ORDERED: ONDANSETRON HCL 4 MG/2 ML VIAL IV PRN (12:00)
[2024-09-21] MEDS ORDERED: MORPHINE SULFATE INJ 2 MG/ml SYRG IV PRN ×2 (12:00)
--- NOTE | 2024-09-21 12:08 | DVHHP2 ---
History of Present Illness Reason for Visit: Chest Pain History of Present Illness Kwan Ott is a 54-year-old male with past medical history of hypertension, hyperlipidemia, coronary artery disease, and MN in July 2018 with stent, and in July 2024 with CABG x1, who came in for chest pain. Patient states that his chest pain began last night about 1730 after feeding the animals. He explains it as a pressure like pain that radiates to his left arm with some shortness of breath. He thought that it would go away so he went to bed about 2030. About 0400 he woke up still feeling the pain, tried to walk it off, when it didn't improve he came to the hospital. Once in the ER an EKG was completed, cardiology was consulted, a second EKG was completed and code STEMI was called. Patient was taken to laboratory courier about 0710. Cardiovascular: CAD, HTN, MN (2018 with stent, 2024 with CABG surgery), hyperipidemia Past Surgical History: CABG (July 2024), Hernia Repair Family History: None Smoke: No ALCOHOL: rare Drugs: None Lives: with Family Domestic Violence: Neg Review of Systems Constitutional: No: Fever, Chills, Sweats, Weakness, Malaise, Other Eyes: No: Pain, Vision change, Conjunctivae inflammation, Eyelid inflammation, Other, Redness ENT: No: Ear pain, Ear discharge, Nose pain, Nose discharge, Nose congestion, Mouth pain, Mouth swelling, Throat pain, Throat swelling, Other Respiratory: No: Cough, Dry, Shortness of breath, SOB with excertion, Wheezing, Hemoptysis, Pleuritic Pain, Sputum, Wheezing, Other Cardiovascular: Chest Pain (radiates to left arm); No: Palpitations, Orthopnea, Paroxysmal Noc. Dyspnea, Edema, Lt Headedness, Other Gastrointestinal: No: Nausea, Vomiting, Abdominal Pain, Diarrhea, Constipation, Melena, Hematochezia, Other Genitourinary: No Dysuria, No Frequency, No Incontinence, No Hematuria, No Retention, No Other Musculoskeletal: No: other, neck pain, shoulder pain, arm pain, back pain, hand pain, leg pain, foot pain Skin: No: Rash, Lesions, Jaundice, Bruising, Other Neurological: No: Weakness, Numbness, Incoordination, Change in speech, Conf usion, Seizures, Other Allergies: Coded Allergies: NO KNOWN ALLERGIES (Unverified , 1/8/19) Medications Current Medications Medications Dose Ordered Sig/Edison Route Start Time Stop Time Status Last Admin Dose Admin Ticagrelor 90 mg BID PO 09/21/24 22:00 Aspirin 81 mg DAILY PO 09/22/24 10:00 Exam Vital Signs Vital Signs Date Time Temp Pulse Resp B/P (MAP) Pulse Ox O2 Delivery O2 Flow Rate FiO2 09/21/24 10:40 74 14 141/83 (102) 96 09/21/24 06:26 Nasal Cannula* 2 28 09/21/24 06:26 97.5 97.5 General Appearance: Alert, Oriented X3, Cooperative, mild distress HEENT: Atraumatic, PERRLA Respiratory: Clear to auscultation, Normal air movement Cardiovascular: Regular rate, Normal S1, Normal S2, No murmurs Abdominal: Normal bowel sounds, Soft, No tenderness, No hepatospenomegaly Extremities: No clubbing, No cyanosis, No edema, Normal pulses, No tenderness/swelling Skin: No rashes, No breakdown, No significant lesion Neuro: Normal gait, Normal speech, Strength at 5/5 X4 ext Psych/Mental Status: Mental status NL, Mood NL Labs/Xrays Labs Test 09/21/24 06:38 Range/Units White Blood Count 13.2 H 4.4-10.8 10^3/uL Red Blood Count 5.15 4.5-5.90 10^6/uL Hemoglobin 13.3 L 13.5-17.5 g/dL Hematocrit 39.6 L 41.0-53.0 % Mean Corpuscular Volume 77.0 L 80.0-100.0 fL Mean Corpuscular Hemoglobin 25.9 L 28.0-32.0 pg Mean Corpuscular Hemoglobin Concent 33.7 32.0-36.0 g/dL Red Cell Distribution Width 14.6 H 11.8-14.3 % Platelet Count 273 140-450 10^3/uL Mean Platelet Volume 8.0 6.9-10.8 fL Neutrophils (%) (Auto) 77.4 37.0-80.0 % Lymphocytes (%) (Auto) 12.7 10.0-50.0 % Monocytes (%) (Auto) 7.8 0.0-12.0 % Eosinophils (%) (Auto) 1.5 0.0-7.0 % Basophils (%) (Auto) 0.6 0.0-2.0 % Neutrophils # (Auto) 10.2 H 1.6-8.6 10 ^3/uL Lymphocytes # (Auto) 1.7 0.4-5.4 10 ^3/uL Monocytes # (Auto) 1.0 0-1.3 10 ^3/uL Eosinophils # (Auto) 0.2 0-0.8 10 ^3/uL Basophils # (Auto) 0.1 0-0.2 10 ^3/uL Nucleated Red Blood Cells 0.0 % Prothrombin Time 10.9 9.3-11.8 sec Prothrombin Time INR 1.03 0.9-1.15 Activated Partial Thromboplast Time 27.9 24.5-34.5 SEC Sodium Level 137 136-145 mmol/L Potassium Level 4.1 3.5-5.1 mmol/L Chloride Level 102 98-107 mmol/L Carbon Dioxide Level 24 20-31 mmol/L Anion Gap 11 5-15 Blood Urea Nitrogen 13 9-23 mg/dL Creatinine 0.80 0.700-1.30 mg/dL Glomerular Filtration Rate Calc 106 >90 mL/min BUN/Creatinine Ratio 16.3 10.0-20.0 Serum Glucose 126 H 74-106 mg/dL Calcium Level 10.2 8.7-10.4 mg/dL Troponin I High Sensitivity 88 *H </=54 ng/L EXAM: XR Chest, 1 View FINDINGS: LUNGS AND PLEURAL SPACES: See below. HEART: Cardiomegaly with mild congestion. MEDIASTINUM: Unremarkable. Normal mediastinal contour. BONES/JOINTS: Unremarkable. No acute fracture. OTHER FINDINGS: . IMPRESSION: Cardiomegaly with mild congestion. Assessment/Plan Assessment/Plan Assessments: ST elevation (STEMI) myocardial infarction of unspecified site, Coronary artery disease, Hypertension, Hyperlipidemia, Plan: Admit to Tele, Cardiology consult, Patient went to laboratory courier and received 4 stents, Start antiplatelet therapy, Home medications reconciled, Plan discussed with: Patient My Orders Orders - KEITH HANKS Procedure Category Date Status Time Admit ADMIT 09/21/24 Transmitted 11:53 Code Status CODE 09/21/24 Transmitted 11:53 Hydrocodone-Acet PHA 09/21/24 Transmitted 5/325mg Tab ([employer] 12:00 Ondansetron Hcl PHA 09/21/24 Transmitted (Zofran) 12:00 Docusate Sodium [facility] 09/21/24 Transmitted Capsule (Colace 12:00 Complete Blood Count LAB 09/22/24 Verified 04:00 Comprehensive LAB 09/22/24 Verified Metabolic Panel 04:00 Condition: Critical [facility] 09/21/24 Transmitted 11:53 Acetaminophen Tablet [facility] 09/21/24 Transmitted (Tylenol Tablet) 12:00 Morphine Sulfate [facility] 09/21/24 Transmitted Injection 12:00 Nitroglycerin [facility] 09/21/24 Transmitted Sublingual (Ntrostat 12:00 Morphine Sulfate [facility] 09/21/24 Transmitted Injection 12:00 Stat Ekg For Chest [facility] 09/21/24 Transmitted Pain 11:53 Notify Of Changes [facility] 09/21/24 Transmitted From Base 11:53 Application Technical Designer For [facility] 09/21/24 Transmitted 24 Hours 11:53 Emergency Dysrhythmia [facility] 09/21/24 Transmitted Protocol 11:53 Rhythm Strips Once [facility] 09/21/24 Transmitted Every Shift 11:53 Oxygen By Nasal 09/21/24 Transmitted Cannula 11:53 Aspirin Tablet [facility] 09/22/24 Transmitted 10:00 Atorvastatin (Lipitor) [facility] 09/21/24 Transmitted 22:00 Metoprolol Tartrate [facility] 09/21/24 Transmitted Tablet (Lopressor Ta 22:00 Date of Service: Sep 21, 2024 Billing Provider: KEITH HANKS Common Visit Codes: [id number] INP/OBS CARE (HIGH) KEITH HANKS Sep 21, 2024 12:08
[2024-09-21] MEDS: TICAGRELOR 90 MG TAB PO SCH (21:57)
[2024-09-21] MEDS: ATORVASTATIN 20 MG TAB PO SCH (21:57)
[2024-09-21] MEDS: ALPRAZolam 0.5 MG TAB PO PRN (21:58)
[2024-09-21] MEDS: METOPROLOL TARTRATE 25 MG TAB PO SCH (21:59)
[2024-09-22 01:00] VITALS: BP 135/81; PULSE 87; RESP 19; TEMP 98.5; O2SAT 98
[2024-09-22 05:00] VITALS: BP 143/84; PULSE 89; RESP 18; TEMP 97.4; O2SAT 100
[2024-09-22 07:07] LABS: Alkaline Phosphatase 86 U/L (46-116); Anion Gap 11 (5-15); BUN/Creatinine Ratio 14.1 (10.0-20.0); Blood Urea Nitrogen 11 mg/dL (9-23); Calcium 10.3 mg/dL (8.7-10.4); Carbon Dioxide 22 mmol/L (20-31); Chloride 106 mmol/L (98-107); Potassium 4.1 mmol/L (3.5-5.1); Sodium 139 mmol/L (136-145); Total Protein 7.6 g/dL (5.7-8.2)
[2024-09-22 07:08] LABS: Alanine Aminotransferase 40 U/L (7-40); Albumin 4.8 g/dL (3.2-4.8); Aspartate Aminotransferase 42 U/L (13-40); Bilirubin, Total 0.7 mg/dL (0.2-1.0); Glucose 119 mg/dL (74-106)
[2024-09-22 07:11] LABS: Basophils # (auto) 0.1 10 ^3/uL (0-0.2); Eosinophils # (auto) 0.2 10 ^3/uL (0-0.8); Eosinophils % (auto) 1.6 % (0.0-7.0); Neutrophils # (auto) 7.8 10 ^3/uL (1.6-8.6); White Blood Cell 11.1 10^3/uL (4.4-10.8)
[2024-09-22 07:14] LABS: Basophils % (auto) 0.6 % (0.0-2.0); Hematocrit 40.9 % (41.0-53.0); Lymphocytes % (auto) 17.7 % (10.0-50.0); Mean Corpuscular Hemoglobin 26.2 pg (28.0-32.0); Mean Corpuscular Hgb Conc. 34.1 g/dL (32.0-36.0); Mean Corpuscular Volume 76.9 fL (80.0-100.0); Monocytes # (auto) 1.1 10 ^3/uL (0-1.3); Neutrophils % (auto) 70.1 % (37.0-80.0); Nucleated Red Blood Cells % 0.1 %; Platelet Count (auto) 263 10^3/uL (140-450); Red Blood Cells 5.32 10^6/uL (4.5-5.90); Red Cell Distribution Width 14.6 % (11.8-14.3)
[2024-09-22 08:00] VITALS: PULSE 92
[2024-09-22] MEDS: ASPirin 81 mg TAB PO SCH ×2 (08:26→08:27)
[2024-09-22 09:00] VITALS: BP 130/75; PULSE 83; RESP 16; TEMP 97.8; O2SAT 100
[2024-09-22 13:00] VITALS: BP 135/87; PULSE 74; RESP 18; TEMP 97.9; O2SAT 99
--- NOTE | 2024-09-22 14:36 | DVHDS2 ---
Discharge Summary Date of Admission Sep 21, 2024 at 11:53 Date of Discharge: Sep 22, 2024 Labs/Diagnostic Data: Laboratory Results Test 09/22/24 05:53 09/21/24 11:45 09/21/24 06:38 White Blood Count 11.1 10^3/uL (4.4-10.8) Red Blood Count 5.32 10^6/uL (4.5-5.90) Hemoglobin 14.0 g/dL (13.5-17.5) Hematocrit 40.9 % (41.0-53.0) Mean Corpuscular Volume 76.9 fL (80.0-100.0) Mean Corpuscular Hemoglobin 26.2 pg (28.0-32.0) Mean Corpuscular Hemoglobin Concent 34.1 g/dL (32.0-36.0) Red Cell Distribution Width 14.6 % (11.8-14.3) Platelet Count 263 10^3/uL (140-450) Mean Platelet Volume 7.9 fL (6.9-10.8) Neutrophils (%) (Auto) 70.1 % (37.0-80.0) Lymphocytes (%) (Auto) 17.7 % (10.0-50.0) Monocytes (%) (Auto) 10.0 % (0.0-12.0) Eosinophils (%) (Auto) 1.6 % (0.0-7.0) Basophils (%) (Auto) 0.6 % (0.0-2.0) Neutrophils # (Auto) 7.8 10 ^3/uL (1.6-8.6) Lymphocytes # (Auto) 2.0 10 ^3/uL (0.4-5.4) Monocytes # (Auto) 1.1 10 ^3/uL (0-1.3) Eosinophils # (Auto) 0.2 10 ^3/uL (0-0.8) Basophils # (Auto) 0.1 10 ^3/uL (0-0.2) Nucleated Red Blood Cells 0.1 % Sodium Level 139 mmol/L (136-145) Potassium Level 4.1 mmol/L (3.5-5.1) Chloride Level 106 mmol/L (98-107) Carbon Dioxide Level 22 mmol/L (20-31) Anion Gap 11 (5-15) Blood Urea Nitrogen 11 mg/dL (9-23) Creatinine 0.78 mg/dL (0.700-1.30) Glomerular Filtration Rate Calc 107 mL/min (>90) BUN/Creatinine Ratio 14.1 (10.0-20.0) Serum Glucose 119 mg/dL (74-106) Calcium Level 10.3 mg/dL (8.7-10.4) Total Bilirubin 0.7 mg/dL (0.2-1.0) Aspartate Amino Transferase (AST) 42 U/L (13-40) Alanine Aminotransferase (ALT) 40 U/L (7-40) Alkaline Phosphatase 86 U/L (46-116) Total Protein 7.6 g/dL (5.7-8.2) Albumin 4.8 g/dL (3.2-4.8) Troponin I High Sensitivity 1830 ng/L (</=54) Prothrombin Time 10.9 sec (9.3-11.8) Prothrombin Time INR 1.03 (0.9-1.15) Activated Partial Thromboplast Time 27.9 SEC (24.5-34.5) Other Laboratory Tests 09/22/24 05:53 Brief Hx & Hospital Course: SEE DICTATED NOTE Condition at Discharge: Good Final Diagnosis/Problems List CAD Discharge Disposition: Home Discharge Instruct/Medications Diet: Cardiac 2g Na,low cholest Activity: No Restrictions, As Tolerated Follow Up/Referral: LEANDRO JUARES PCP/CARDIOLOGY IN 1 WK Medications: RESUME HOME MEDS SCRIPT TO PHARMACY Discharge Statement: "Patient was advised to return to the ER or call 911 if any headaches, dizziness, shortness of breath, chest pain, abdominal pain, bleeding, fevers, or worsening of medical condition. Patient was counseled about treatment plan, medications, possible side effects, patientverbalized understanding. All questions were answered to the best of my ability. This discharge took greater then 30 minutes in planning, reviewing documentation, counseling the patient, and discussing with other team members." ASSESSMENT ASSESSMENT Assessment CAD Date of Service: Sep 22, 2024 Billing Provider: HANSA BRANTLEY MD Common Visit Codes: 88828-OJZ/OBS DISCH DAY >30min HANSA BRANTLEY MD Sep 22, 2024 14:36
[2024-09-22] MEDS ORDERED: TICA90TA PO (14:37)
[2024-09-22 14:59] VITALS: BP 135/87; PULSE 74; RESP 18; TEMP 97.9; O2SAT 99
--- NOTE | 2024-09-22 15:08 | DVHDS ---
DATE OF DISCHARGE: 09/22/2024 HISTORY OF PRESENT ILLNESS: The patient is a 54-year-old gentleman, who was admitted with complaints of chest pain; and has history of coronary artery disease, status post CABG; hypertension; hyperlipidemia. HOSPITAL COURSE: The patient was noted to have an acute myocardial infarction. The patient was seen in Cardiology consult by Dr. Olvera. The patient underwent coronary angiography with thrombectomy of the RCA and stenting of the RCA. The patient is now doing well and hence will be discharged home to resume his home medications as well as to be on Brilinta 90 mg p.o. b.i.d. He will follow up with his primary and hand gluer and slicer in 1 week. FINAL DIAGNOSES: Therefore, * Acute myocardial infarction, status post stenting. * Coronary artery disease, status post coronary artery bypass graft. * Hyperlipidemia. * Hypertension. * Systemic inflammatory response syndrome due to acute myocardial infarction. Time spent in discharge planning and review of plan with the patient, ada accommodation consultant, and family was 39 minutes. MD MICHI Sanford/AGNÉLICA TID: [id number] RECEIPT: [id number]
== END 2024-09-22 15:25 | disposition home or self-care (01) | DRG 321 ==
LOC: ER 05:59 → OVERFLOW 11:53 → TELE-WESTW 13:58
PROVIDERS: ADMIT Internal Medicine; ATTEND Internal Medicine
PROC: 027037Z Dilation of Coronary Artery, One Artery with Four or More Drug-eluting Intraluminal Devices, Percutaneous Approach (ICD-10-PCS; principal; 2024-09-21)
PROC: 02C03ZZ Extirpation of Matter from Coronary Artery, One Artery, Percutaneous Approach (ICD-10-PCS; 2024-09-21)
PROC: B211YZZ Fluoroscopy of Multiple Coronary Arteries using Other Contrast (ICD-10-PCS; 2024-09-21)
PROC: B215YZZ Fluoroscopy of Left Heart using Other Contrast (ICD-10-PCS; 2024-09-21)
PROC: B212YZZ Fluoroscopy of Single Coronary Artery Bypass Graft using Other Contrast (ICD-10-PCS; 2024-09-21)
PROC: 4A023N7 Measurement of Cardiac Sampling and Pressure, Left Heart, Percutaneous Approach (ICD-10-PCS; 2024-09-21)
PROC: 6A750ZZ Ultrasound Therapy, Circulatory, Single (ICD-10-PCS; 2024-09-21)
PROC: 3E03317 Introduction of Other Thrombolytic into Peripheral Vein, Percutaneous Approach (ICD-10-PCS; 2024-09-21)
DX: I21.3 ST elevation (STEMI) myocardial infarction of unspecified site (principal); R65.10 Systemic inflammatory response syndrome (SIRS) of non-infectious origin without acute organ dysfunction; I25.10 Atherosclerotic heart disease of native coronary artery without angina pectoris; I16.0 Hypertensive urgency; E78.5 Hyperlipidemia, unspecified; I10 Essential (primary) hypertension; F12.90 Cannabis use, unspecified, uncomplicated; Z82.49 Family history of ischemic heart disease and other diseases of the circulatory system; I25.2 Old myocardial infarction; Z95.1 Presence of aortocoronary bypass graft; Z79.899 Other long term (current) drug therapy; Z79.82 Long term (current) use of aspirin; Z82.3 Family history of stroke
CPT/HCPCS: 36415; 71045; 80048; 80053; 84484; 85025; 85610; 85730; 93005; 96365; 96375; 99152; 99291; G0378; J2250; J2405; Q9967